=== PATIENT | female | born 1995 | race Caucasian/White ===

== ENCOUNTER → 2016-07-10 | Emergency (ER) | payer MEDICAID ==
[~2016-07-10] VITALS: Ht 167.6 cm; Wt 77.1 kg
[2016-07-10 14:34] LABS: CALCIUM 8.8 mg/dL (8.5-10.1); CREATININE 0.8 mg/dL (0.6-1.0); GFR 91.4; POTASSIUM 3.6 mmol/L (3.5-5.1)
[2016-07-10 14:35] LABS: BASO % 1 % (0-3); EOS # 0.1 x10^3/uL (0.0-0.7); EOS % 1 % (0-3); HEMATOCRIT 38.9 % (36.0-47.0); HEMOGLOBIN 12.8 g/dL (12.0-15.5); LYMPH # 2.5 x10^3/uL (1.0-4.8); LYMPH % 33 % (24-48); MEAN CORPUSCULAR HEMOGLOBIN 27 pg (25-35); MEAN CORPUSCULAR HGB CONC 33 g/dL (31-37); MEAN CORPUSCULAR VOLUME 83 fL (79-100); MONO # 0.3 x10^3/uL (0.0-1.1); MONO % 4 % (0-9); NEUT # 4.5 x10^3uL (1.8-7.7); NEUT % 61 % (31-73); PLATELET COUNT 224 x10^3/uL (140-400); RED BLOOD COUNT 4.67 x10^6/uL (3.50-5.40); RED CELL DISTRIBUTION WIDTH 15.4 % (11.5-14.5); WHITE BLOOD COUNT 7.5 x10^3/uL (4.0-11.0)
[2016-07-10 14:37] LABS: PREG TEST PT QUAL NEGATIVE (NEG)
--- NOTE | 2016-07-10 15:21 | EKG ---
[address] [address] Test Date: 2016-07-10 Test Time: 13:56:20 Pat Name: ENRIKE FROST Department: Room: Gender: F [employer] Developer: : 1995 Requested By: SHAY TOBAR Order Number: [id number] Reading MD: Measurements Intervals [place] Rate: 65 P: 28 [place]: 148 QRS: 56 QRSD: 96 T: 56 QT: 388 QTc: 404 Interpretive Statements SINUS RHYTHM NO SPECIFIC ECG ABNORMALITIES RI6.01 Unconfirmed report No previous ECG available for comparison
[2016-07-10] MEDS: IOHEXOL 300 MG/ML 75 ML VIAL. IV ONE (16:30)
--- NOTE | 2016-07-10 16:55 | ED.ADGEN ---
Past History Past Medical History: No Pertinent History Past Surgical History: No Surgical History Alcohol Use: None Drug Use: None Adult General Chief Complaint Chief Complaint Left-sided chest pain HPI HPI Patient is a 21-year-old male presents with left sided chest wall pain worse with deep breathing and movement. Patient denies trauma to the area. Denies cough, sore throat or fever. No leg pain or swelling. No history of DVT or PE. Patient recently relocated from [facility]. Review of Systems Review of Systems Review of systems as per history of present illness. Current Medications Current Medications Current Medications Medications (Trade) Dose Ordered Sig/Naima Start Time Stop Time Status Last Admin Dose Admin Iohexol (Omnipaque 300 Mg/ml) 75 ml 1X ONCE 07/10/16 16:30 07/10/16 16:31 DC Allergies Allergies Allergies Coded Allergies Type Severity Reaction Last Updated Verified No Known Drug Allergies 07/10/16 No Physical Exam Physical Exam Constitutional: Well developed, well nourished, no acute distress, non-toxic appearance. HENT: Normocephalic, atraumatic, bilateral external ears normal, oropharynx moist, nose normal. Eyes: PERRLA, EOMI, conjunctiva normal. Neck: Normal range of motion, no tenderness, supple. Cardiovascular:Heart rate regular rhythm, no murmur. Lungs & Thorax: Bilateral breath sounds clear to auscultation. Abdomen: Bowel sounds normal, soft, no tenderness. Skin: Warm. Back: No tenderness. Extremities: No tenderness. Neurologic: Alert and oriented X 3, normal motor function, normal sensory function. Psychologic: Affect normal, judgement normal, mood normal. Current Patient Data Vital Signs Vital Signs Date Time Temp Pulse Resp B/P Pulse Ox O2 Delivery O2 Flow Rate FiO2 07/10/16 13:35 97.7 88 18 99 Room Air Lab Results Laboratory Tests Test 07/10/16 14:17 07/10/16 14:50 White Blood Count 7.5x10^3/uL (4.0-11.0) Red Blood Count 4.67x10^6/uL (3.50-5.40) Hemoglobin 12.8g/dL (12.0-15.5) Hematocrit 38.9% (36.0-47.0) Mean Corpuscular Volume 83fL (79-100) Mean Corpuscular Hemoglobin 27pg (25-35) Mean Corpuscular Hemoglobin Concent 33g/dL (31-37) Red Cell Distribution Width 15.4% (11.5-14.5) H Platelet Count 224x10^3/uL (140-400) Neutrophils (%) (Auto) 61% (31-73) Lymphocytes (%) (Auto) 33% (24-48) Monocytes (%) (Auto) 4% (0-9) Eosinophils (%) (Auto) 1% (0-3) Basophils (%) (Auto) 1% (0-3) Neutrophils # (Auto) 4.5x10^3uL (1.8-7.7) Lymphocytes # (Auto) 2.5x10^3/uL (1.0-4.8) Monocytes # (Auto) 0.3x10^3/uL (0.0-1.1) Eosinophils # (Auto) 0.1x10^3/uL (0.0-0.7) Basophils # (Auto) 0.0x10^3/uL (0.0-0.2) D-Dimer (Sandra) 0.61mg/L (0.00-0.50) H Sodium Level 139mmol/L (136-145) Potassium Level 3.6mmol/L (3.5-5.1) Chloride Level 104mmol/L (98-107) Carbon Dioxide Level 28mmol/L (21-32) Anion Gap 7 (6-14) Blood Urea Nitrogen 12mg/dL (7-20) Creatinine 0.8mg/dL (0.6-1.0) Estimated GFR (Cockcroft-Gault) 91.4 Glucose Level 86mg/dL (70-99) Calcium Level 8.8mg/dL (8.5-10.1) Serum Test, Qualitative Negative (NEG) POC Urine HCG, Qualitative hcg negative (Negative) EKG EKG [] Radiology/Procedures Radiology/Procedures [CTA chest: ] Impressions: Chest pain Course & Med Decision Making Course & Med Decision Making Pertinent Labs and Imaging studies reviewed. (See chart for details) Atypical CP. ] Final Impression Final Impression [] Problems: Dragon Disclaimer Dragon Disclaimer This electronic medical record was generated, in whole or in part, using a voice recognition dictation system. SHAY TOBAR DO Jul 10, 2016 16:55
[2016-07-10 17:00] VITALS: BP 116/62
--- NOTE | 2016-07-10 17:14 | RAD ---
Indication chest pain. Elevated d-dimer. Contrast imaging through the chest was performed. Examination was tailored for the detection of pulmonary embolus. MIP images were generated and reviewed. 75 cc of Omnipaque 300 was administered intravenously. No prior imaging of the chest is available. Imaging through the upper abdomen is unremarkable. The thoracic aorta appears unremarkable. There is no significant hilar or mediastinal adenopathy. The study is negative for pulmonary embolus. No acute parenchymal infiltrate is seen in either lung. IMPRESSION: No acute finding apparent in the chest. Negative study for pulmonary embolus. PQRS Compliance Statement: One or more of the following individualized dose reduction techniques were utilized for this examination: 1. Automated exposure control 2. Adjustment of the mA and/or kV according to patient size 3. Use of iterative reconstruction technique
== END ==
LOC: ER 13:25
DX: R07.89 Other chest pain (principal)
CPT/HCPCS: 36415; 71275; 80048; 81025; 84703; 85027; 85379; 93005; 99285; Q9967